=== PATIENT | female | born 2000 | race Caucasian/White ===

== ENCOUNTER 2019-04-02 18:42 | Emergency (ER) | payer MEDICAID ==
[~2019-04-02] VITALS: Ht 157.5 cm; Wt 68.0 kg
--- NOTE | 2019-04-02 18:46 | NUR ---
PT AMBULATED TO ER BED 08
[2019-04-02 18:51] VITALS: BP 128/59
--- NOTE | 2019-04-02 18:56 | NUR ---
19/F BIB SELF C/O WITNESSED SYNCOPE LAST NIGHT 9PM WHILE STANDING IN REST ROOM SPEAKING WITH SISTER----PT WAS OUT FOR APPROX 3 MINS THEN STATED SHE FELT TIRED ---PT DENIES INJURY , NO INCONTINENCE AT TIME ---ADMIT TO DRINKING ALCOHOL DURING WEEKENDS AND SMOKING THC DAILY. DENIES N/V/D; SKIN IS PINK/WARM/DRY; AAOX4. PATIENT STATES PAIN OF 0/10 AT THIS TIME;PATIENT POSITIONED FOR COMFORT; HOB ELEVATED; BEDRAILS UP X2; BED DOWN. ER MD MADE AWARE OF PT STATUS.
--- NOTE | 2019-04-02 19:00 | NUR ---
Gypsy pierce in EDM - 04/02/19 at 1901 by MED1 STAPLE 4 STITCHES DONE BY PERLA CAMILO. PT TOLERATED PROCEDURE WELL.
--- NOTE | 2019-04-02 19:11 | NUR ---
Pt report given to PRUDENCIO BOLES. Transfer of care at this time.
[2019-04-02 19:13] LABS: BASOPHILS # (AUTO) 0.1 K/uL (0.00-0.22); BASOPHILS % (AUTO) 0.8 % (0.0-2.0); EOSINOPHILS # (AUTO) 0.2 K/uL (0-0.4); HEMATOCRIT 40.5 % (36-48); HEMOGLOBIN 13.3 g/dL (12.0-16.0); LYMPHOCYTES # (AUTO) 3.1 K/uL (2.5-16.5); LYMPHOCYTES % (AUTO) 37.6 % (20.5-51.1); MEAN CORPUSCULAR HEMOGLOBIN 29 pg (27-31); MEAN CORPUSCULAR HGB CONC 33 g/dL (33-37); MEAN CORPUSCULAR VOLUME 88.9 fL (80-94); MONOCYTES # (AUTO) 0.9 K/uL (0.8-1.0); MONOCYTES % (AUTO) 10.9 % (1.7-9.3); NEUTROPHILS % (AUTO) 48.7 % (42.2-75.2); PLATELET COUNT (AUTO) 212 K/uL (140-450); RED BLOOD CELL COUNT(AUTO) 4.56 MIL/uL (4.20-5.40); RED CELL DISTRIBUTION WIDTH 13.2 % (11.6-13.7); WHITE BLOOD COUNT (AUTO) 8.3 K/uL (4.8-10.8)
[2019-04-02 19:15] LABS: APPEARANCE,URINE CLEAR (CLEAR); BILIRUBIN,URINE NEGATIVE (NEGATIVE); BLOOD, URINE NEGATIVE (NEGATIVE); COLOR,URINE YELLOW (YELLOW); LEUKOCYTE ESTERASE ,URINE NEGATIVE (NEGATIVE); NITRITE, URINE NEGATIVE (NEGATIVE); PH,URINE 7.5 (5.0-9.0); UGLUCOSE NEGATIVE (NEGATIVE)
--- NOTE | 2019-04-02 19:15 | NUR ---
PT LAYING IN BED, RR EVEN AND UNLABORED. VSS. ALL NEEDS MET AT THIS TIME.
[2019-04-02 19:20] LABS: BARBITURATE, URINE NEG. ng/ml (NEG <=200); BENZODIAZEPINE, URINE NEG. ng/mL (NEG <=200); CANNABINOID, URINE POS. ng/mL (NEG <=50); COCAINE, URINE NEG. ng/mL (NEG <=300); OPIATE, URINE NEG. ng/mL (NEG <=2000); PHENCYCLIDINE SCREEN,URINE NEG. ng/mL (NEG <=25)
[2019-04-02 19:21] LABS: CREATININE 0.8 mg/dL (0.6-1.3)
[2019-04-02 19:27] LABS: ALBUMIN 3.8 g/dL (3.4-5.0); TOTAL BILIRUBIN 0.9 mg/dL (0.0-1.0)
--- NOTE | 2019-04-02 20:17 | NUR ---
PT LAYING IN BED, FAMILY AT BEDSIDE. PT DENIES DIZZINESS. REPORTS MILD HEADACHE. VSS. ORTHOSTATIC VS TAKEN. ALL NEEDS MET AT THIS TIME
--- NOTE | 2019-04-02 20:45 | NUR ---
DR FORRESTER AT BEDSIDE
--- NOTE | 2019-04-02 21:09 | NUR ---
PT BACK FROM XR
[2019-04-02] MEDS ORDERED: ACETAMINOPHEN 325 MG TAB PO ONE (21:20)
--- NOTE | 2019-04-02 21:20 | NUR ---
DR FORRESTER AT BEDSIDE
[2019-04-02 21:24] VITALS: BP 106/63
--- NOTE | 2019-04-02 21:24 | NUR ---
Patient discharged with v/s stable. Written and verbal after care instructions given and explained. Patient verbalized understanding. Ambulatory with steady gait. All questions addressed prior to discharge. Advised to follow up with PMD.
== END 2019-04-02 21:20 | disposition home or self-care (01) ==
LOC: MED 18:42
DX: R55 Syncope and collapse (principal); R51 Headache; R07.89 Other chest pain; I21.9 Acute myocardial infarction, unspecified
CPT/HCPCS: 36415; 70450; 71046; 72125; 80053; 80305; 81003; 81025; 85025; 99284

== ENCOUNTER 2019-09-28 18:19 | Observation (INO) | payer MEDICAID ==
[~2019-09-28] VITALS: Ht 160 cm; Wt 67.6 kg
[2019-09-28 18:25] VITALS: BP 111/70
--- NOTE | 2019-09-28 18:32 | NUR ---
PT TO ER LOBBY. PT ALERT AND AWAKE.
--- NOTE | 2019-09-28 18:36 | NUR ---
PT TO BED 1 WITH STEADY GAIT
--- NOTE | 2019-09-28 18:49 | NUR ---
19/F C/O SUDDEN AND SEVERE RLQ PAIN X 30 MIN PRIOR TO ARRIVAL. HAS BEEN CONSTANT SINCE START. DENIES N/V/D, FEVER. LBM TODAY, NORMAL. PMH- DENIES
[2019-09-28 19:11] LABS: BASOPHILS # (AUTO) 0.1 K/uL (0.00-0.22); BASOPHILS % (AUTO) 0.8 % (0.0-2.0); EOSINOPHILS # (AUTO) 0.3 K/uL (0-0.4); EOSINOPHILS % (AUTO) 1.8 % (0.0-4.0); HEMATOCRIT 39.3 % (36-48); HEMOGLOBIN 12.8 g/dL (12.0-16.0); LYMPHOCYTES # (AUTO) 2.6 K/uL (2.5-16.5); LYMPHOCYTES % (AUTO) 14.1 % (20.5-51.1); MEAN CORPUSCULAR HEMOGLOBIN 30 pg (27-31); MEAN CORPUSCULAR HGB CONC 33 g/dL (33-37); MEAN CORPUSCULAR VOLUME 90.5 fL (80-94); MONOCYTES # (AUTO) 1.1 K/uL (0.8-1.0); NEUTROPHILS # (AUTO) 14.2 K/uL (1.8-7.7); NEUTROPHILS % (AUTO) 77.3 % (42.2-75.2); PLATELET COUNT (AUTO) 249 K/uL (140-450); RED BLOOD CELL COUNT(AUTO) 4.34 MIL/uL (4.20-5.40); RED CELL DISTRIBUTION WIDTH 13.9 % (11.6-13.7); WHITE BLOOD COUNT (AUTO) 18.3 K/uL (4.8-10.8)
[2019-09-28 19:41] LABS: ALBUMIN 3.7 g/dL (3.4-5.0); ANION GAP 13.2 (8-16); CARBON DIOXIDE 27.5 mmol/L (21-32); CREATININE 0.6 mg/dL (0.6-1.3); POTASSIUM 3.7 mmol/L (3.5-5.1); TOTAL BILIRUBIN 0.5 mg/dL (0.0-1.0)
[2019-09-28 19:59] LABS: APPEARANCE,URINE SL CLOUDY (CLEAR); BILIRUBIN,URINE NEGATIVE (NEGATIVE); BLOOD, URINE NEGATIVE (NEGATIVE); COLOR,URINE YELLOW (YELLOW); LEUKOCYTE ESTERASE ,URINE NEGATIVE (NEGATIVE); NITRITE, URINE NEGATIVE (NEGATIVE); UGLUCOSE NEGATIVE (NEGATIVE)
[2019-09-28] MEDS ORDERED: NACL 0.9% 1,000 ML IV ONE (20:15)
[2019-09-28] MEDS ORDERED: KETOROLAC 30 MG/ML VIAL IVP ONE (20:15)
--- NOTE | 2019-09-28 20:21 | NUR ---
PT TAKEN TO CT
--- NOTE | 2019-09-28 20:36 | NUR ---
PT RETURN FROM CT
--- NOTE | 2019-09-28 20:51 | NUR ---
PER PATIENT, "I HAD A SEIZURE THIS PAST MONDAY, AND HIT MY HEAD". NO NOTICEABLE INJURY ON HEAD; PERRLA +3; IMPLEMENTED SEIZURE PRECAUTIONS. NOTIFIED ERMD. WILL CONTINUE TO MONITOR
[2019-09-28] MEDS ORDERED: MORPHINE SULFATE 2 MG/ML SYR IVP ONE (21:45)
--- NOTE | 2019-09-28 22:40 | NUR ---
PATIENT IS SITTING QUIETLY IN BED. PAIN IS A 4/10 AT THIS TIME. SISTER AT BEDSIDE. WILL CONTINUE TO MONITOR.
[2019-09-29] MEDS ORDERED: cefTRIAXone 1,000 MG VIAL ONE (00:04)
--- NOTE | 2019-09-29 00:41 | NUR ---
PATIENT'S PAIN LEVEL IS A 4/10 PAIN LEVEL. SITTING IN BED QUIETLY. VSS. WILL CONTINUE TO MONITOR.
--- NOTE | 2019-09-29 02:17 | NUR ---
PATIENT IS SLEEPING AT THIS TIME. WILL CONTINUE TO MONITOR.
[2019-09-29] MEDS ORDERED: ACETAMINOPHEN 325 MG TAB PO ONE (02:30)
[2019-09-29] MEDS ORDERED: DEXT 5% / NACL 0.9% 500 ML IV ONE (02:35)
--- NOTE | 2019-09-29 02:57 | NUR ---
Patient will be admitted to care of DR. OLIVERA. Admited to Med/Surg. Will go to room 111B. Belongings list completed. Report to ELVI CUMMINGS.
--- NOTE | 2019-09-29 03:00 | NUR ---
ADMITTED THIS 19 YEAR OLD FEMALE FORM ER PER CABRERA WITH CC OF ABDOMINAL PAIN, AMBULATED TO BED WITH STEADY GAIT, ASSESSMENT DONE, VITAL SIGNS STABLE, 5/10 PAIN AT THIS TIME, WILL MEDICATE PRN, ORIENTED TO ROOM AND CALL LIGHT, INSTRUCTED NPO EXCEPT MEDS, SAFETY MEASURES IN PLACE, CALL LIGHT WITHIN REACH.
[2019-09-29 03:20] VITALS: BP 99/54
--- NOTE | 2019-09-29 03:30 | NUR ---
MEDICATED WITH TYLENOL PO FOR PAIN, IVF OF S5 NS AT 100ML/H STARTED, ALL NEEDS ATTENDED.
[2019-09-29] MEDS ORDERED: INFLUENZA VACCINE QUAD 0.5 ML SYR IMVAC PRN (03:55)
--- NOTE | 2019-09-29 06:00 | NUR ---
PT SLEEPING, NO SIGNS OF PAIN, IVF INFUSING WELL, MAINTAINED ON NPO EXCEPT MEDS, MONITORED CLOSELY.
--- NOTE | 2019-09-29 07:18 | NUR ---
PT SLEEPING, NO SIGNS OF DISTRESS, REPORT GIVEN TO ELVI ESTEVES FOR CONTINUITY OF CARE.
--- NOTE | 2019-09-29 07:34 | NUR ---
RECEIVED BEDSIDE REPORT FROM PM RN PT AWAKE IN BED ALL SAFETY MEASURES ARE IN PLACE WILL CONTINUE TO MONITOR.
[2019-09-29 08:15] VITALS: BP 100/56
[2019-09-29] MEDS ORDERED: BUPIVACAINE-MPF/EPI 0.25% 30 ML VIAL INJ ONE (09:12)
[2019-09-29] MEDS ORDERED: MIDAZOLAM 2 MG/2 ML VIAL ONE (09:16)
[2019-09-29] MEDS ORDERED: fentaNYL 0.05 MG/ML VIAL ONE (09:16)
--- NOTE | 2019-09-29 09:17 | NUR ---
pt taken off the unit pt taken to or for appendectomy. pt removed all clothing and pt removed all jewerly.
[2019-09-29] MEDS ORDERED: DESFLURANE 240 ML BTL INH ONE (09:32)
[2019-09-29] MEDS ORDERED: PROPOFOL 200 MG/20 ML VIAL IV ONE (09:32)
[2019-09-29] MEDS ORDERED: ROCURONIUM 50 MG/5 ML VIAL IV ONE (09:32)
[2019-09-29] MEDS ORDERED: SUCCINYLCHOLINE CHLORIDE 200 MG/10 ML VIAL IVP ONE (09:32)
[2019-09-29] MEDS ORDERED: NEOSTIGMINE 1:1000 10 MG/10 ML VIAL ONE (09:32)
[2019-09-29] MEDS ORDERED: KETOROLAC 30 MG/ML VIAL ONE (09:32)
[2019-09-29] MEDS ORDERED: ONDANSETRON 4 MG/2 ML VIAL ONE (09:32)
[2019-09-29] MEDS ORDERED: LIDOCAINE 2% 100 MG/5 ML SYR IVP ONE (09:32)
[2019-09-29] MEDS ORDERED: GLYCOPYRROLATE 0.2 MG/ML VIAL ONE (09:32)
[2019-09-29] MEDS ORDERED: DEXAMETHASONE 4 MG/ML VIAL ONE (09:32)
[2019-09-29] MEDS ORDERED: ONDANSETRON 4 MG/2 ML VIAL IVP PRN ×2 (10:05→11:45)
[2019-09-29] MEDS: HYDROmorphone 1 MG/ML AMP IVP PRN ×4 (10:55→11:25)
[2019-09-29] MEDS ORDERED: HYDROmorphone PFS 2 MG/ML SYR ONE (11:01)
--- NOTE | 2019-09-29 11:30 | NUR ---
PT ARRIVED BACK ON THE UNIT FROM OR. PT VITALS STABLE STARTED POST OP VITALS SHEET. PT SISTER IS AT BEDSIDE. ALL SAFETY MEASURES ARE IN PLACE. DR. WOODRUFF AT BEDSIDE. TO ASSESS PT
[2019-09-29] MEDS ORDERED: ACETAMINOPHEN 650 MG SUPP RC PRN (11:45)
[2019-09-29] MEDS ORDERED: BISACODYL 10 MG SUPP RC PRN (11:45)
[2019-09-29] MEDS ORDERED: IPRATROPIUM 0.02% 0.5 MG/2.5 ML NEBU INH PRN (11:45)
[2019-09-29] MEDS ORDERED: SODIUM PHOSPHATE 118 ML ENEM RC PRN (11:45)
[2019-09-29] MEDS ORDERED: ALUMINUM HYD/MAG/SIMETHICONE 30 ML UDC PO PRN (11:45)
[2019-09-29] MEDS ORDERED: ACETAMINOPHEN 325 MG TAB PO PRN (11:45)
[2019-09-29] MEDS ORDERED: MAG SULF 2000 MG/WATER PREMIX 50 ML IV PRN (11:45)
[2019-09-29] MEDS ORDERED: cloNIDine 0.1 MG TAB PO PRN (11:45)
[2019-09-29] MEDS ORDERED: MAGNESIUM OXIDE 400 MG TAB PO PRN (11:45)
[2019-09-29] MEDS ORDERED: diphenhydrAMINE 50 MG/ML VIAL IVP PRN (11:45)
[2019-09-29] MEDS ORDERED: DOCUSATE SODIUM 250 MG GELCAP PO PRN (11:45)
[2019-09-29] MEDS ORDERED: ALBUTEROL 0.083% 2.5 MG/3 ML NEBU INH PRN (11:45)
[2019-09-29] MEDS ORDERED: POTASSIUM CHLORIDE 10 MEQ TABER PO PRN (11:45)
[2019-09-29] MEDS: MORPHINE SULFATE 2 MG/ML SYR IVP PRN ×2 (12:17→17:47)
[2019-09-29] MEDS: NACL 0.45% 1,000 ML IV SCH (12:18)
--- NOTE | 2019-09-29 13:30 | NUR ---
FREQUENT ROUNDING ON PT PT APPEARS STABLE AND IN NO APPARENT DISTRESS. ALL SAFETY MEASURES ARE IN PLACE
[2019-09-29] MEDS: HYDROcodone/APAP 5/325 MG 1 TAB TAB PO PRN ×2 (14:11→19:57)
--- NOTE | 2019-09-29 15:30 | NUR ---
FREQUENT ROUNDING ON PT PT APPEARS STABLE AND IN NO APPARENT DISTRESS. ALL SAFETY MEASURES ARE IN PLACE
[2019-09-29 16:45] VITALS: BP 102/64
--- NOTE | 2019-09-29 19:38 | NUR ---
ENDORSED PT TO PM RN PT AWAKE IN BED PT APPEARS STABLE AND IN NO APPARENT DISTRESS. ALL SAFETY MEASURES ARE IN PLACE PT FAMILY AT BEDSIDE
--- NOTE | 2019-09-29 19:39 | NUR ---
RECEIVED BEDSIDE REPORT FROM DAY SHIFT NURSE LINN RN, PT STABLE, NO DISTRESS NOTED, IV TO R AC 22G PATENT INTACT, INFUSING WELL, PT ON ROOM AIR, NO SOB NOTED, PT STATED HAVING ABD PAIN, WILL MEDICATE, DRESSINGS CLEAN DRY AND INTACT, INITIAL ASSESSMENT DONE, ALL SAFETY PRECAUTION MET, CALL LIGHT WITHIN REACH, WILL CONTINUE TO MONITOR.
--- NOTE | 2019-09-29 19:57 | NUR ---
PAIN MEDICATION ADMINISTERED PER DR ORDER, PT TOLERATED WELL, NO DISTRESS NOTED, CALL LIGHT WITHIN REACH, WILL CONTINUE TO MONITOR.
[2019-09-29] MEDS ORDERED: ZOLPIDEM 5 MG TAB PO PRN (21:00)
--- NOTE | 2019-09-29 23:24 | NUR ---
DUE MEDICATION ADMINISTERED, V/S TAKEN PT STABLE, NO DISTRESS NOTED, CALL LIGHT WITHIN REACH, WILL CONTINUE TO MONITOR.
[2019-09-30] VITALS: BP 95/50
[2019-09-30] MEDS: NACL 0.45% 1,000 ML IV SCH ×3 (00:20→17:40)
[2019-09-30] MEDS: HYDROcodone/APAP 5/325 MG 1 TAB TAB PO PRN ×3 (00:45→16:42)
--- NOTE | 2019-09-30 00:46 | NUR ---
PT AMBULATED TO RESTROOM AND BACK TO BED, PT STATED HAVING PAIN, MEDICATION PER DR ORDERED ADMINISTERED, PT TOLERATED WELL, NO DISTRESS NOTED, CALL LIGHT WITHIN REACH, WILL CONTINUE TO MONITOR.
--- NOTE | 2019-09-30 00:50 | NUR ---
ABD WOUNDS PICTURE NOT TAKEN BECAUSE IT HAS NOT BEEN 24HRS SINCE PROCEDURE. BANDAGES CLEAN DRY AND INTACT.
--- NOTE | 2019-09-30 03:43 | NUR ---
PT SLEEPING, NO DISTRESS NOTED, CALL LIGHT WITHIN REACH, WILL CONTINUE TO MONITOR.
[2019-09-30 06:05] LABS: BASOPHILS % (AUTO) 0.2 % (0.0-2.0); EOSINOPHILS # (AUTO) 0.1 K/uL (0-0.4); EOSINOPHILS % (AUTO) 0.7 % (0.0-4.0); HEMATOCRIT 33.8 % (36-48); HEMOGLOBIN 11.1 g/dL (12.0-16.0); LYMPHOCYTES # (AUTO) 2.7 K/uL (2.5-16.5); LYMPHOCYTES % (AUTO) 27.2 % (20.5-51.1); MEAN CORPUSCULAR HEMOGLOBIN 30 pg (27-31); MEAN CORPUSCULAR HGB CONC 33 g/dL (33-37); MEAN CORPUSCULAR VOLUME 90.8 fL (80-94); MONOCYTES # (AUTO) 0.9 K/uL (0.8-1.0); MONOCYTES % (AUTO) 8.7 % (1.7-9.3); NEUTROPHILS # (AUTO) 6.3 K/uL (1.8-7.7); NEUTROPHILS % (AUTO) 63.2 % (42.2-75.2); PLATELET COUNT (AUTO) 207 K/uL (140-450); RED BLOOD CELL COUNT(AUTO) 3.73 MIL/uL (4.20-5.40); RED CELL DISTRIBUTION WIDTH 13.9 % (11.6-13.7); WHITE BLOOD COUNT (AUTO) 9.9 K/uL (4.8-10.8)
[2019-09-30 06:36] LABS: ANION GAP 11.2 (8-16); CARBON DIOXIDE 26.6 mmol/L (21-32); CREATININE 0.5 mg/dL (0.6-1.3); POTASSIUM 3.8 mmol/L (3.5-5.1)
--- NOTE | 2019-09-30 07:20 | NUR ---
ENDORSED PT TO DAY SHIFT NURSE OG RN, PT STABLE, NO DISTRESS NOTED, CALL LIGHT WITHIN REACH.
--- NOTE | 2019-09-30 07:21 | NUR ---
RECEIVED REPORT FROM VP DESIGN NURSE. PATIENT LYING DOWN IN BED SLEEPING, AROUSABLE BY VOICE. NO DISTRESS NOTED. DENIES ANY PAIN. AAOX4, CALM, COOPERATIVE, SKIN COLOR APPROPRIATE TO ETHNICITY, WARM TO TOUCH. HAS 3 ABD WOUNDS S/P LAP APPENDECTOMY. IV SITE INTACT, PATENT, AND INFUSING IVF PER MD ORDERS. REVIEWED PLAN OF CARE WITH PATIENT. PATIENT VERBALIZED UNDERSTANDING. SAFETY MEASURES IN PLACE, CALL LIGHT WITHIN REACH. WILL CONTINUE TO MONITOR.
[2019-09-30 08:00] VITALS: BP 105/65
[2019-09-30] MEDS: HYDROmorphone 1 MG/ML AMP IVP PRN (08:12)
--- NOTE | 2019-09-30 09:16 | NUR ---
PATIENT LYING DOWN IN BED SLEEPING, AROUSABLE BY VOICE. NO DISTRESS NOTED. PAIN WITHIN TOLERABLE. WILL CONTINUE TO MONITOR.
--- NOTE | 2019-09-30 10:28 | NUR ---
DC PLANNING : 19 YRS OLD FEMALE ADMITTED FROM HOME WITH A DX OF ACUTE APPENDICITIS AND DEHYDRATION . NO MEDICAL HX, INDEPENDENT TO PERFORM ADL'S . ADMINISTERED IVF , PAIN MANAGEMENT ROCEPHIN IVPB AND PLAN TO SURGICAL EVALUATION. ON 09/29/[address]Y [address] FIGUEROA (SURGEON ) PT TOLERATED THE PROCEDURE DC PLAN POST OP CARE AND ADVANCE DIET TOLERATED AND AMBULATION TO PREVENT FURTHER COMPLICATION . Addendum: 09/30/19 at 1057 by Avis Rich CM DC PLANNING: CALLED [facility] SPOKE WITH SHAVON SAENZ [phone] UPDATED PT INFORMATION , PER LETTY IN PT STATUS IS APPROVED.
--- NOTE | 2019-09-30 12:21 | NUR ---
Revolving Inventory Clerk Note: Name: AGNIESZKA Hidalgo Relationship: MOTHER Pre-Admission Living Arrangements: Lives with Other Prior ADL Independent Current Home Health Name/Tel: N/A Current DME/02 Name/Tel: N/A Current Hospice Name/Tel: N/A Current Dialysis Name/Tel: N/A Healthcare Decision Maker: Patient Advance Directive No - REFUSED Physician Orders for Life Sustaining Treatment Form No Patient/Family Have Educational Needs No Information Taught: Advance Directive Person Taught: Patient Teaching Tools: Verbal Factors Affecting Learning: None Participation Level: Refused Evaluation: Verbalizes Understanding Needs Additional Education: No Discipline: Case Mgt/Social Svcs Tentative Discharge Plan/Destination: No Needs Identified Will require assistance post discharge: No Referred to Garden Tractor Mechanic: No Tentative Discharge Plan Summary: Patient is a 19 eyar old female admitted for abdominal pain/possible appendicitis. Patient has no significant PMHX. Patient was admitted from home. SW verified demographics with patient. Patient stated that her PCP is Dr. Michele Way and her last appointment was 3 months ago. SW offered education on advanced directive and patient refused. Patient reported no history of mental health, no SI/HI, and no substance abuse history. Patient's plan after discharge is to return home. No further needs identified. Signature: DANYELL Way Date: Sep 30, 2019 Time: 12:20
--- NOTE | 2019-09-30 12:25 | NUR ---
PATIENT SITTING IN BED WITH LUNCH TRAY IN FRONT. NO DISTRESS NOTED. COMPLAINS OF ABD PAIN ON SURGERY SITE, NORCO GIVEN AT THIS TIME. WILL CONTINUE TO MONITOR.
[2019-09-30 16:00] VITALS: BP 132/70
--- NOTE | 2019-09-30 16:41 | NUR ---
AT THE BEDSIDE WITH PATIENT AND MOTHER, ASSISTED PATIENT TO ROTATE ON THE OTHER SIDE OF BED STABILIZED. EDUCATED PATIENT OF THE IMPORTANCE OF DEEP BREATHING, TURN AND COUGH, PATIENT MEDICATED AT THIS TIME. WILL CONTINUE TO MONITOR.
--- NOTE | 2019-09-30 18:20 | NUR ---
DISCHARGED INDUCTIONS GIVEN TO PATIENT, WOUND CARE AND MEDICATION REGIMEN EDUCATION PROVIDED, PATIENT VERBALIZED UNDERSTANDING AND PLAN OF CARE. WILL FOLLOW UP WITH MD DIRECTED. WOUND PHOTO TAKEN. PATIENT IS IN STABLE CONDITION. WILL GET DRESSED FOR DISCHARGED
--- NOTE | 2019-09-30 18:40 | NUR ---
PATIENT IN STABLE CONDITION, IV DISCHARGED WITH LUMEN INTACT, NO REDNESS NOTED. ESCORTED VIA WHEEL CHAIR TO LOBBY. DISCHARGED AT THIS TIME.
== END 2019-09-30 18:40 | disposition home or self-care (01) ==
LOC: MED 18:19 → MTU 09-29 02:33 → INTOOBSV 09-29 15:25 → OBSVTOIN 09-29 15:25
PROVIDERS: ADMIT Internal Medicine Pulmonary Disease; ATTEND Internal Medicine Pulmonary Disease
DX: K35.80 Unspecified acute appendicitis (principal); E86.0 Dehydration
CPT/HCPCS: 36415; 44970; 74022; 74176; 80048; 80053; 81003; 83690; 85025; 87070; 87075; 87081; 87205; 88304; 90686; 94760; 96361; 96365; 96366; 96375; 96376; 99285; G0378; J0330; J0696; J1100; J1170; J1885; J2001; J2250; J2270; J2405; J2704; J2710; J3010; J3490; J7030; J7042; J7060

== ENCOUNTER 2021-06-04 18:49 | Emergency (ER) | payer MEDICAID ==
[~2021-06-04] VITALS: Ht 160 cm; Wt 78.0 kg
[2021-06-04 18:59] VITALS: BP 122/72
--- NOTE | 2021-06-04 18:59 | NUR ---
Patient ambulated to 3. RN is evaluating the patient at [facility].
[2021-06-04 19:09] VITALS: BP 122/72
--- NOTE | 2021-06-04 19:10 | NUR ---
RECEIVED REPORT FROM ELVI ZHU FOR CONTINUITY OF CARE.
--- NOTE | 2021-06-04 19:13 | NUR ---
21 YO F, 11 WEEKS AOG, C/O LOW BACK PAIN RADIATING TO BOTH LEGS SINCE YESTERDAY. PAIN 8/10, SHARP, AGGRAVATED BY SITTING FROM LYING POSITION. ALSO WITH N/V. DENIES URINARY SYMPTOMS. LMP MARCH 03, 2021. IN ED, VSS. NO ACTIVE VOMITING NOTED. ABDOMEN GRAVID, NONTENDER, WITH NORMOACTIVE BOWEL SOUNDS. ERMD MADE AWARE OF PT STATUS. PMH: NONE MEDS: VITAMINS NKA
[2021-06-04] MEDS ORDERED: ACETAMINOPHEN EXTRA STRENGTH 500 MG TAB PO ONE (19:50)
[2021-06-04] MEDS ORDERED: CEPH-588 PO (20:28)
== END 2021-06-04 20:43 | disposition home or self-care (01) ==
LOC: MED 18:49
DX: O23.41 Unspecified infection of urinary tract in pregnancy, first trimester (principal); M54.5 Low back pain; Z3A.11 11 weeks gestation of pregnancy; Z79.899 Other long term (current) drug therapy
CPT/HCPCS: 81002; 81025; 99283